=== PATIENT | female | born 1965 | race Caucasian/White ===

== ENCOUNTER 2023-11-12 11:35 | Emergency (ER) | payer BC, SELFPAY ==
[2023-11-12 11:42] VITALS: BP 132/79; PULSE 91; TEMP 36.6; O2SAT 98; BMI 27.0
[2023-11-12 12:05] VITALS: BP 133/79; PULSE 85; RESP 21; O2SAT 94
--- NOTE | 2023-11-12 12:15 | ED_ITS ---
HPI - Dizziness 2 General: Chief Complaint: Headache Stated Complaint: dizzy Time Seen by Provider: 11/12/23 12:00 Source: patient and family Mode of arrival: ambulatory Limitations: no limitations History of Present Illness: HPI Narrative: Patient is a 58-year-old female presents to ED today along with her for evaluation of headache, neck pain, back pain, dizziness. Patient states she woke up with symptoms. She states she has a history of lupus. She states the headache, neck pain, back pain is common with her lupus and she states her pain today feels very similar to previous lupus related discomforts. She states the dizziness however is new. She describes it as her/herself spinning. It is significantly worse with movement of her head. She states she cannot ambulate due to dizziness. Denies chest pain, shortness of breath, palpitations. Denies slurred speech, facial droop, weakness to her arms or legs, numbness/tingling/loss of sensation, difficulty with word finding, or other neurologic complaints. MD elicited complaint: vertigo Onset (ago): hour(s) Timing: awoke with symptoms Severity: severe Description: room spinning and difficulty walking History of similar symptoms: No Exacerbating factors: movement/ambulation and change in body position Relieving factors: remaining still Associated symptoms: Reports no associated symptoms and headache(s); Denies chest pain, chills, malaise, nausea, palpitations, syncope or vomiting Associated neuro symptoms: Reports no associated symptoms; Deny confusion or numbness in extremities Stroke scale total: 0 Related Data Home Medications Medication Instructions Recorded Confirmed aspirin 81 mg tablet,delayed 81 mg PO QAM 11/12/23 11/12/23 release ciclopirox 8 % topical solution See Rx Instructions .Route .COMPLEX 11/12/23 11/12/23 ergocalciferol (vitamin D2) 1,250 50,000 mcg PO Q7D 11/12/23 11/12/23 mcg (50,000 unit) capsule estradiol 0.01% (0.1 mg/gram) 1 g vaginal BID 11/12/23 11/12/23 vaginal cream famotidine 20 mg tablet 20 mg PO BID 11/12/23 11/12/23 hydroxychloroquine 200 mg tablet 200 mg PO DAILY 11/12/23 11/12/23 metoprolol succinate 25 mg 25 mg PO QPM 11/12/23 11/12/23 tablet,extended release 24 hr ondansetron 4 mg disintegrating 4 mg PO Q8H PRN Nausea 11/12/23 11/12/23 tablet potassium chloride 20 mEq oral 20 meq PO DAILY PRN Hypokalemia 11/12/23 11/12/23 packet (Albino-Joseluis) rosuvastatin 20 mg tablet 20 mg PO QPM 11/12/23 11/12/23 tizanidine 4 mg tablet 40 mg PO Q6H PRN Muscle Spasm 11/12/23 11/12/23 Previous Rx's Medication Instructions Recorded meclizine 50 mg tablet 50 mg PO BID PRN dizziness #20 tabs 11/12/23 prednisone 10 mg tablet 10 mg PO DAILY 6 days #20 tabs 11/12/23 Allergies Allergy/AdvReac Type Severity Reaction Status Date / Time meperidine [From Demerol] Allergy Unknown Verified 11/12/23 11:50 morphine Allergy Unknown Verified 11/12/23 11:50 Sulfa (Sulfonamide Allergy Unknown Verified 11/12/23 11:50 Antibiotics) Review of Systems 2 Const: Denies: fever(s), chills, body aches, fatigue or malaise Eyes: Reports: change in vision; Denies: blurry vision, photophobia, floaters or seeing flashes Card: Denies: chest pain, palpitations, irregular heart rhythm, lightheadedness, syncope or dyspnea on exertion Resp: Denies: dyspnea, productive cough or pain on inspiration GI: Denies: abdominal pain, nausea, vomiting, heartburn or diarrhea : Denies: dysuria Musc: Reports: neck pain and back pain; Denies: extremity pain, extremity swelling, joint pain, joint swelling or joint redness Skin/Breast: Denies: rash Neuro: Reports: headache(s), difficulty walking (secondary to vertigo) and vertigo; Denies: numbness in extremities, weakness in extremities, sensory changes, lack of coordination, confusion, Slurred speech present or difficulty communicating thoughts Physical Exam 2 Const: COMMON NORMALS: no acute distress, average body habitus, patient oriented x3, no limitations, healthy appearing, alert and well nourished G ENERAL APPEARANCE: cooperative ORIENTATION/CONSCIOUSNESS: Yes awake, Yes oriented to person, Yes oriented to place and Yes oriented to time HENMT: COMMON NORMALS: normocephalic and atraumatic HEAD & SCALP: normal to inspection, normocephalic and atraumatic FACE & SINUS: normal facial exam and face symmetric Eye: COMMON NORMALS: Equal, round and reactive pupils present, EOMs intact bilaterally and conjunctivae normal GENERAL EYE: appearance normal, both eyes and all related structures and normal light reflex VISUAL ACUITY: Yes acuity normal PERIORBITAL: periorbital findings normal EYELID: eyelids normal CONJUNCTIVA: Yes conjunctivae normal SCLERA: sclerae normal CORNEA: Yes corneas normal PUPIL: Yes Equal, round and reactive pupils present DIRECT OPHTHALMOSCOPY: Yes normal light reflex OTHER: R horizontal nystagmus; normal head impulse testing; absent skew Neck/C-Spine: COMMON NORMALS: full ROM, no lymphadenopathy, supple and no meningeal signs GENERAL: Yes normal visual inspection CERVICAL SPINE: No Cervical spine tenderness and Yes Paracervical muscle tenderness Chest: COMMONS NORMALS: normal inspection of the chest Resp: COMMON NORMALS: normal respiratory effort and clear to auscultation bilaterally AUSCULTATION: clear to auscultation bilaterally Cardio: COMMON NORMALS: regular rate and regular rhythm RATE: regular rate RHYTHM: regular rhythm GI: COMMON NORMALS: Normal to inspection, nondistended, normoactive bowel sounds present, Soft to palpation, non-tender, No hepatosplenomegaly present and no masses PALPATION: Yes Soft to palpation and Yes No hepatosplenomegaly present : COMMON NORMALS: Yes no CVA tenderness BLADDER/KIDNEY EXAM: Yes no CVA tenderness Back/Pelvis: COMMON NORMALS: no CVA tenderness THORACIC SPINE/UPPER BACK: Y es paraspinal muscle tenderness LUMBAR SPINE/LOWER BACK: Yes paraspinal muscle tenderness Extremity: COMMON NORMALS: normal to inspection GENERAL: Yes normal exam except as noted Neuro: BEE COMA SCALE: document GCS findings Bee coma scale eye opening: Spontaneous [place] coma scale verbal response: Orientated [place] coma scale motor response: Obey commands Bee coma scale total score: 15 COMMON NORMALS: patient oriented x3, CN's II-XII intact bilaterally, moves all extremities, no focal motor deficits and no sensory deficits noted S ENSORIUM/ORIENTATION: Yes alert, Yes oriented to person, Yes oriented to place and Yes oriented to time MENINGEAL SIGNS: Yes no meningeal signs SPEECH: s peech normal GAIT: Yes Unable to assess gait MOTOR EXAM: 5/5 motor strength present throughout Skin: COMMON NORMALS: no rashes or lesions noted GENERAL SKIN EXAM: no rashes or lesions noted Course 2 Vital Signs: Vital signs: Vital Signs Temperature 97.8 F 11/12/23 11:42 Pulse Rate 83 11/12/23 13:55 Respiratory Rate 16 11/12/23 13:55 Blood Pressure 131/72 11/12/23 13:55 Pulse Oximetry 94 11/12/23 13:55 Oxygen Delivery Me thod Room Air 11/12/23 13:55 MDM - Dizziness Medical Decision Making After speaking to patient further she has had URI-like symptoms prior to leading up to the vertigo. This most likely is a vestibular neuronitis. Other DDx includes vestibular migraine specially with her current headache although she has had these previously with her lupus without the vertigo. BPPV. Central etiology ruled out with her normal MRI. Blood work overall is unremarkable. She was able to ambulate here with the help of a walker. This time patient will be discharged home with meclizine and steroids. Recommend follow-up with her primary care provider by the end of the week for reevaluation. Return to ED precautions given. Medical Records I reviewed the patient's medical records. Lab Data I reviewed the patient's lab results. 11/12/23 12:10 11/12/23 12:10 Radiology Impressions Head MRI 11/12/23 12:17 IMPRESSION: 1. No acute infarct or diffusion abnormality. 2. No volume loss or atrophy. 3. Sphenoid sinus disease. Laboratory Results WBC 5.16 10^3/uL (3.29-11.43) 11/12/23 12:10 RBC 4.27 10^6/uL (3.85-5.65) 11/12/23 12:10 Hgb 12.40 g/dL (11.27-16.99) 11/12/23 12:10 Hct 36.3 % (36-47) 11/12/23 12:10 MCV 85.0 fl (85-98) 11/12/23 12:10 MCH 29.0 pg (27-33) 11/12/23 12:10 MCHC 34.2 g/dL (30-55) 11/12/23 12:10 RDW 12.3 % (12.1-15.1) 11/12/23 12:10 Plt Count 151 10^3/cmm (157-399) L 11/12/23 12:10 MPV 11.0 fL (7.4-10.4) H 11/12/23 12:10 Neut % (Auto) 58.1 % 11/12/23 12:10 Lymph % (Auto) 32.0 % 11/12/23 12:10 [place] % (Auto) 7.9 % 11/12/23 12:10 Eos % (Auto) 1.2 % 11/12/23 12:10 Baso % (Auto) 0.6 % 11/12/23 12:10 Neut # (Auto) 3.00 10^3/uL (1.8-7.7) 11/12/23 12:10 Lymph # (Auto) 1.7 10^3/uL (0.8-4.8) 11/12/23 12:10 [place] # (Auto) 0.4 10^3/uL (0.2-0.9) 11/12/23 12:10 Eos # (Auto) 0.1 10^3/uL (0.0-0.8) 11/12/23 12:10 Baso # (Auto) 0.0 10^3/uL (0.0-0.1) 11/12/23 12:10 Nucleated RBC % (auto) 0 % 11/12/23 12:10 Nucleated RBCs # 0.0 /100WBC 11/12/23 12:10 Sodium 135 mmol/L (136-145) L 11/12/23 12:10 Potassium 4.0 mmol/L (3.5-5.1) 11/12/23 12:10 Chloride 101 mmol/L (98-107) 11/12/23 12:10 Carbon Dioxide 25 mmol/L (22-29) 11/12/23 12:10 Anion Gap 13.0 (5-19) 11/12/23 12:10 BUN 5 mg/dL (6-20) L 11/12/23 12:10 Creatinine 0.5 mg/dL (0.5-0.9) 11/12/23 12:10 GFR Calculation 126.7 mL/min (90-130) 11/12/23 12:10 Glucose 97 mg/dL (65-115) 11/12/23 12:10 Calculated Osmolality 277 mOsm/kg (285-295) L 11/12/23 12:10 Calcium 8.5 mg/dL (8.5-10.5) 11/12/23 12:10 Total Bilirubin 0.3 mg/dL (0.15-1.2) 11/12/23 12:10 AST 20 U/L (0-32) 11/12/23 12:10 ALT 13 U/L (0-33) 11/12/23 12:10 Alkaline Phosphatase 112 U/L (35-105) H 11/12/23 12:10 Total Protein 6.9 g/dL (6.6-8.7) 11/12/23 12:10 Albumin 4.0 g/dL (3.5-5.2) 11/12/23 12:10 Globulin 2.9 g/dL (1.3-4.6) 11/12/23 12:10 Urine Color Yellow (Yellow) 11/12/23 13:18 Urine Appearance Error (CLEAR) A 11/12/23 13:18 Urine pH 7.5 (5-7) 11/12/23 13:18 Ur Specific [place] 1.009 (1.005-1.030) 11/12/23 13:18 Urine Protein Negative (Negative) 11/12/23 13:18 Urine Glucose (UA) Negative (Normal) 11/12/23 13:18 Urine Ketones Negative (Negative) 11/12/23 13:18 Urine Blood Negative (Negative) 11/12/23 13:18 Urine Nitrate Negative (Negative) 11/12/23 13:18 Urine Bilirubin Negative (Negative) 11/12/23 13:18 Urine Urobilinogen 0.2 mg/dL (Negative) 11/12/23 13:18 Ur Leukocyte Esterase Negative (Negative) 11/12/23 13:18 Urine RBC 0-2 /hpf (0-2) 11/12/23 13:18 Urine WBC 0-5 /hpf (0-5) 11/12/23 13:18 Ur Squamous Epith Cells 0-5 /hpf (0-5) 11/12/23 13:18 Amorphous Sediment Not Reportable 11/12/23 13:18 Urine Bacteria None seen /hpf (NONE) 11/12/23 13:18 Hyaline Casts 0.40 /lpf 11/12/23 13:18 All radiology interpretation(s) finalized by discharge Discharge Plan Discharge Patient Disposition: Home Clinical Impression: Peripheral vertigo Qualifiers: Laterality: unspecified laterality Qualified Code(s): H81.399 - Other peripheral vertigo, unspecified ear Condition: Stable Prescriptions: New meclizine 50 mg tablet 50 mg PO BID PRN (Reason: dizziness) Qty: 20 0RF prednisone 10 mg tablet 10 mg PO DAILY 6 Days Qty: 20 0RF Rx Instructions: Take 5 tabs on day 1-2, 4 tabs on day 3, 3 tabs on day 4, 2 tabs on day 5, and 1 tab on day 6 No Action tizanidine 4 mg tablet 40 mg PO Q6H PRN (Reason: Muscle Spasm) Aspir-81 81 mg Tablet,Delayed Release (Dr/Ec) 81 mg PO QAM ciclopirox 8 % solution See Rx Instructions .ROUTE .COMPLEX Rx Instructions: Apply to nails every day for 1 week, remove and start again. Klor-Con 20 mEq packet 20 meq PO DAILY PRN (Reason: Hypokalemia) famotidine 20 mg tablet 20 mg PO BID metoprolol succinate 25 mg tablet extended release 24 hr 25 mg PO QPM ergocalciferol (vitamin D2) 1,250 mcg (50,000 unit) capsule 50,000 mcg PO Q7D Rx Instructions: Saturday hydroxychloroquine 200 mg tablet 200 mg PO DAILY estradiol 0.01 % (0.1 mg/gram) cream 1 g VAGINAL BID ondansetron 4 mg tablet,disintegrating 4 mg PO Q8H PRN (Reason: Nausea) rosuvastatin 20 mg tablet 20 mg PO QPM Discharge Orders: Discharge ED (Routine); Ordered 11/12/23 Ordered By: Jossy Parr Patient Instructions: Vertigo (DC), Dizziness (ED) Activity Restrictions/Additional Instructions: As we discussed, I would like you to follow-up with your primary care provider by the end of the week for reevaluation. You need to return to the emergency department for worsening dizziness, repetitive episodes of vomiting, or worsening or severe head pain, slurred speech, trouble ambulating or tipping over, facial drooping, numbness/tingling/loss of sensation or weakness to your arms or legs, or any other concerns you may have. Coding Level of Care Code ED Applications Programmer Analyst for Jackie Portillo
--- NOTE | 2023-11-12 12:17 | MR_ITS ---
WS: [id number] MRI BRAIN WITHOUT CONTRAST HISTORY: dizziness COMPARISON: MRI from 06/15/2011 TECHNIQUE: Diffusion imaging, multiplanar T1, T2 and FLAIR imaging obtained. No evidence for acute infarct or hemorrhage. Almanzar-white matter differentiation is normal. No remote or acute infarcts are volume loss. Ventricles and extra-axial spaces are normal. No inferior displacement of cerebellar tonsils. The sella turcica and pituitary gland are unremarkabl e. Dural venous sinuses and [place] of [place] demonstrate no abnormality on this unenhanced studies. Paranasal sinuses: Near complete opacification RIGHT sphenoid sinus. No air-fluid levels within the m axillary sinuses. Mastoid air cells: Normal. Calvarium and scalp: Intact. MR/MR head wo con* [id number] IMPRESSION: 1. No acute infarct or diffusion abnormality. 2. No volume loss or atrophy. 3. Sphenoid sinus disease.
[2023-11-12 12:26] LABS: Basophils % 0.6 %; Eosinophils # 0.1 10^3/uL (0.0-0.8); Eosinophils % 1.2 %; Hematocrit 36.3 % (36-47); Lymphocytes # 1.7 10^3/uL (0.8-4.8); Mean Corpuscular HGB Conc 34.2 g/dL (30-55); Monocytes # 0.4 10^3/uL (0.2-0.9); Monocytes % 7.9 %; Neutrophils % 58.1 %; Nucleated Red Blood Cells % 0 %; Platelet Count 151 10^3/cmm (157-399); Red Blood Count 4.27 10^6/uL (3.85-5.65); Red Cell Distribution Width 12.3 % (12.1-15.1); White Blood Count 5.16 10^3/uL (3.29-11.43)
[2023-11-12] MEDS: meclizine 25 mg tablet 50 MG PO (12:34)
[2023-11-12 12:36] LABS: Alanine Aminotransferase 13 U/L (0-33); Alkaline Phosphatase 112 U/L (35-105); Aspartate Amino Transferase 20 U/L (0-32); Blood Urea Nitrogen 5 mg/dL (6-20); Calcium 8.5 mg/dL (8.5-10.5); Carbon Dioxide 25 mmol/L (22-29); Chloride 101 mmol/L (98-107); Creatinine Clr Calc Pharmacy 105.7612; Globulin 2.9 g/dL (1.3-4.6); Glomerular Filtration Rate 126.7 mL/min (90-130); Glucose 97 mg/dL (65-115); Osmolality Calculated 277 mOsm/kg (285-295); Sodium 135 mmol/L (136-145); Total Bilirubin 0.3 mg/dL (0.15-1.2); Total Protein 6.9 g/dL (6.6-8.7)
[2023-11-12] MEDS: LORazepam 2 mg/mL INJ 1 mL IVP (12:45)
--- NOTE | 2023-11-12 12:46 | PC.NURSE ---
PT taken to MRI at 1245
[2023-11-12 13:30] VITALS: BP 132/73; PULSE 88; RESP 18; O2SAT 97
[2023-11-12 13:35] LABS: Bacteria Urine None Seen /hpf; RBC Urine 0-2 /hpf (0-2); Squamous Epithelial Cell Urine 0-5 /hpf (0-5); WBC Urine 0-5 /hpf (0-5)
[2023-11-12 13:39] LABS: Add Urine Microscopic? YES; Bilirubin Urine Negative (Negative); Blood Urine Negative (Negative); Glucose Urine UA Negative (Normal); Ketones Urine Negative (Negative); Leukocyte Esterase Urine Negative (Negative); Nitrate Urine Negative (Negative); Protein Urine Negative (Negative); Specific Gravity, Urine 1.009 (1.005-1.030); Urine Appearance Error (CLEAR); Urine Color Yellow (Yellow); Urobilinogen Urine 0.2 mg/dL (Negative); pH Urine 7.5 (5-7)
--- NOTE | 2023-11-12 13:39 | PC.PHAR ---
pt has 3 medications with unknown directions. [facility] in [facility] is closed for lunch and will reopen at 2pm. Will follow up as soon as they are open.
[2023-11-12] MEDS: sodium chloride 0.9% 1,000 ML 999 ML IV (13:41)
[2023-11-12 13:55] VITALS: BP 131/72; PULSE 83; RESP 16; O2SAT 94
--- NOTE | 2023-11-12 14:12 | PC.NURSE ---
ambulated pt from bed to hallway and back to bed. pt reports feeling very Off balance and pt states when turning head side to side, the room starts spinning. pt sways with walking, and steps are unequal.
[2023-11-12 14:47] VITALS: BP 147/72; PULSE 82; O2SAT 92
== END 2023-11-12 14:48 | disposition home or self-care (01) ==
PROVIDERS: Emergency Provider Physician Assistant
DX: H81.399 Other peripheral vertigo, unspecified ear (principal); Z79.82 Long term (current) use of aspirin
CPT/HCPCS: 70551; 80053; 81001; 85025; 96374; 99285; J2060; J7030; J8597

== ENCOUNTER 2024-09-19 13:38 | Emergency (ER) | payer BC, SELFPAY ==
[2024-09-19] VITALS (8 sets, daily range): BP systolic 119–170; BP diastolic 69–111; PULSE 81–133; RESP 15–18; TEMP 36.4; O2SAT 94–100
--- NOTE | 2024-09-19 13:41 | ECG_ITS ---
[facility]: 2024-09[facility]19 Pat Name: Dariela Glez Department: Room: Gender: Female Coat Room Attendant: : 1965 Requested By: Rahel Johansen Order Number: [id number] Ihsan MD: SANTIAGO DOYLE Measurements Intervals [place] Rate: 121 P: 50 FL: 172 QRS: -5 QRSD: 78 T: 58 QT: 299 QTc: 425 Interpretive Statements SINUS TACHYCARDIA ABNORMAL RHYTHM ECG Compared to ECG 06/11/2015 16:34:52 Sinus rhythm no longer present Electronically Signed On 09-21-2024 13:57:55 CDT by SANTIAGO DOYLE [email or web address]
--- NOTE | 2024-09-19 13:44 | XRR_ITS ---
PROCEDURE INFORMATION: Exam: XR Chest Exam date and time: 09/19/2024 1:47 PM Age: 59 years old Clinical indication: Cough; Additional info: Dyspnea; Cough TECHNIQUE: Imaging protocol: Radiologic exam of the chest. Views: 1 view. COMPARISON: No relevant prior studies available. FINDINGS: Lungs: Unremarkable. No consolidation or mass. Pleural spaces: Unremarkable. No pleural effusion. No pneumothorax. Heart/Mediastinum: Unremarkable. No cardiomegaly. Bones/joints: Unremarkable. XR/XR chest 1V portable [id number] IMPRESSION: No acute findings.
--- OUTSIDE RECORDS SUMMARY | 2024-09-19 13:45 | XMS_ITS | Clinical Summary ---
Author Organization [facility] Address [address] [place] [address] Care Team Providers Care Table Assembler Metal Name Role Phone Sara Winkler DO Primary Care Provider Kyle Pemberton MD Unavailable Allergies Active Allergy Reactions Criticality Noted Date Comments Meperidine Other (See comments),Palpitations,U nknown Medium 12/03/2008 Very sick cardiac cardiac Very sick cardiac cardiac Morphine Unknown 02/05/2019 Medications predniSONE (DELTASONE) 20 mg tablet 0 12/23/2018 Active omeprazole (PriLOSEC) 20 mg capsule TK 1 C PO D B MEGAN 3 01/05/2019 Active LORazepam (ATIVAN) 2 mg tablet TK 1 T PO ONCE 45 MIN PRIOR TO MRI 0 01/06/2019 Active fluticasone propionate (FLONASE) 50 mcg/actuation nasal spray SHAKE LQ AND U 1 SPR IEN D 11 12/11/2018 Active Active Problems Problem Noted Date Diagnosed Date Sudden left hearing loss 02/06/2019 Subjective tinnitus of left ear 02/06/2019 Asymmetric SNHL (sensorineural hearing loss) Fatigue 02/02/2016 Pain of hand 08/04/2015 Hypokalemia 08/04/2015 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 Surgical History Surgery Date Site/Laterality Comments HYSTERECTOMY Medical History Medical History Date Comments Anxiety Autoimmune disease Social History Tobacco Use Types Packs/Day Years Used Date Smoking Tobacco: Every Day Personal Safety Answer Date Recorded Getting School Help Needed Not on file 05/02 Comments Unknown Sex and Gender Information Value Date Recorded Sex Assigned at Not on file 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 Gender Identity Not on file Sexual Orientation Not on file Obstetrics History Last Filed Vital Signs Vital Sign Reading Time Taken Comments Blood Pressure 133/84 11/22/2016 8:53 AM CDT Pulse 85 11/22/2016 8:53 AM CDT Temperature - - Respiratory Rate - - Oxygen Saturation - - Inhaled Oxygen Concentration - - Weight 71.4 kg (157 lb 6.2 oz) 11/22/2016 8:53 A M CDT Height 152.4 cm (5') 11/22/2016 8:53 AM CDT Body Mass Index 30.74 11/22/2016 8:53 AM CDT Plan of Treatment Not on file Insurance [employer] [place] Care Teams Table Assembler Metal Relationship Specialty Start Date End Date Sara Winkler DO PCP - General Family Medicine 01/12/19 Kyle Pemberton MD [address] [facility] [place] [id number] Referring Physician Otolaryngology 02/04/19
--- OUTSIDE RECORDS SUMMARY | 2024-09-19 13:45 | XMS_ITS | Clinical Summary ---
Author Organization [employer] ([place] [address] Address [address] [address] Care Team Providers Care Exploration Driller Name Role Phone Unavailable Primary Care Provider Unavailabl e Allergies Active Allergy Reactions Criticality Noted Date Comments Cephalexin Itching Medium 07/09/2023 Ciprofloxacin Anaphylaxis High 07/10/2023 Meperidine Hypotension,Other (See Comments),Palpitation s,Unknown Medium 12/03/2008 Very sick cardiac cardiac Very sick cardiac cardiac Very sick cardiac cardiac cardiac Very sick cardiac Morphine Hypotension,Unknown Medium 02/05/2019 Blood pressure drops drastically. Sulfamethoxazole-Trimet hoprim Swelling Low 12/25/2023 Blisters on hands, redness and swelling of hands and feet Medications multivitamin (DAILY-NATHALY) tabletIndications :Hypokalemic periodic paralysis Take 1 Tablet by mouth daily. Active aspirin (ECOTRIN EC) 81 mg Tablet, Delayed Release (E.C.) Take 81 mg by mouth daily. Active rosuvastatin (CRESTOR) 20 mg tablet Take 20 mg by mouth daily. Active nebivoloL (BYSTOLIC) 5 mg Tablet Take 5 mg by mouth daily. 4 Active metoprolol succinate (TOPROL XL) 25 mg Extended Release 24 hour tablet Take 25 mg by mouth daily at bedtime. 4 10/08/19 25 Active ondansetron (ZOFRAN ODT) 4 mg Tablet, Rapid Dissolve 4 Active nitrofurantoin (MACROBID) 100 mg capsule 4 Active potassium CHLORIDE (KLOR-CON) 20 mEq PacketIndications :Hypokalemia Take 1 Packet (20 mEq) by mouth daily. 30 Packet 3 5 Active hydroxychloroquin e (PLAQUENIL) 200 mg tabletIndications :Other forms of systemic lupus erythematosus, unspecified organ involvement status (CMS/HCC) Take 1 Tablet (200 mg) by mouth 2 times daily. 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 Take with food. 52 Tablet 5 Active folic acid (FOLVITE) 1 mg tablet Take 1 Tablet (1 mg) by mouth daily. 90 Tablet 3 5 Active ergocalciferol (VITAMIN D2) 50,000 unit capsuleIndication s:Vitamin D deficiency Take 1 Capsule (50,000 Units) by mouth every 7 days. 5 Capsule 5 5 Active famotidine (PEPCID) 20 mg tabletIndications :Gastroesophageal reflux disease without esophagitis Take 1 Tablet (20 mg) by mouth 2 times daily. 60 Tablet 5 5 Active famotidine (PEPCID) 20 mg tabletIndications :Gastroesophageal reflux disease without esophagitis Take 1 Tablet (20 mg) by mouth 2 times daily. 60 Tablet 5 5 09/11/19 25 Discontinu ed(Reorder ) Active Problems Problem Noted Date Diagnosed Date Gastroesophageal reflux disease without esophagi tis 06/18/2017 Other osteoporosis without current pathological fracture 06/18/2017 Familial periodic paralysis 06/18/2017 Other forms of systemic lupus erythematosus 02/2017 S/P total hysterectomy 06/18/2017 Hypercholesteremia 06/18/2017 Cigarette dependence 06/18/2017 Hypokalemia 08/04/2015 Encounters Date Type Department Care Team Description 09/10/2024 Telephone [facility] [address] [phone] Preston Olea MD Medication Refill 09/08/2024 External Device Data STL ABSTRACTION Provider, Abstract 09/07/2024 Orders Only [facility] [address] [phone] Preston Olea MD Medication monitoring encounter 09/02/2024 External Device Data STL ABSTRACTION Provider, Abstract 09/02/2024 External Device Data STL ABSTRACTION Provider, Abstract 09/01/2024 External Device Data STL ABSTRACTION Provider, Abstract 08/18/2024 External Device Data STL ABSTRACTION Provider, Abstract 08/11/2024 External Device Data STL ABSTRACTION Provider, Abstract 07/13/2024 Orders Only [facility] [address] [place] [address] Preston Olea MD Medication monitoring encounter 07/09/2024 External Device Data STL ABSTRACTION Provider, Abstract 07/09/2024 External Device Data STL ABSTRACTION Provider, Abstract 07/08/2024 External Device Data STL ABSTRACTION Provider, Abstract 07/08/2024 External Device Data STL ABSTRACTION Provider, Abstract 07/07/2024 External Device Data STL ABSTRACTION Provider, Abstract 06/23/2024 External Device Data STL ABSTRACTION Provider, Abstract from Last 3 Months Family History Medical History Relation Name Comments Psoriasis Daughter Psoriasis Father Heart Disease Mother SLE Paternal Cousin Relation Name Status Comments Daughter Father Mother Paternal Cousin Alive Social History Tobacco Use Types Packs/Day Years Used Date Smoking Tobacco: Every Day Cigarettes 0.5 30 Tobacco Cessation:Ready to Q uit: Not Asked; Counseling Given: Not Answered Alcohol Use Standard Drinks/Week Comments No 0 (1 standard drink = 0.6 oz pur e alcohol) Comments No Sex and Gender Information Value Date Recorded Sex Assigned at Not on file Legal Sex Female 1:28 PM CDT Gender Identity Not on file Sexual Orientation Not on file Last Filed Vital Signs Vital Sign Reading Time Taken Comments Blood Pressure 123/82 03/13/2024 9:45 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 Pulse 64 03/13/2024 9:45 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 Temperature 36.8 C (98.2 F) 07/21/2023 1:00 AM CDT Respiratory Rate 12 11/01/2023 8:46 AM CDT Oxygen Saturation 98% 03/13/2024 9:45 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 Inhaled Oxygen Concentration - - Weight 66.2 kg (146 lb) 03/13/2024 9:45 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 Height 154.9 cm (5' 1 ) 03/13/2024 9:45 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 Body Mass Index 27.59 03/13/2024 9:45 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 Plan of Treatment Upcoming Encounters Date Type Department Care Team (Late st Contact Info) Description 10/09/2024 2:20 PM CDT Appointment [facility] [address] [phone] Preston Olea MD [address] [place], [place] [phone] Health Maintenance Due Date Last Done Comments Pre-Diabetes and Diabetes Screening 1965 DTAP/TDAP/TD VACCINES (1 - Tdap) 02/19/1984 HEPATITIS B VACCINES (1 of 3 - 19+ 3-dose series) 02/19/1984 ZOSTER VACCINE (1 of 2) 02/19/1984 FIT-DNA Q 3 years 2010 FIT/FOBT Q 1 year 2010 Flex Sig/CT Colonography Q 5 years 2010 Preventative Visit- Commercial 02/19/2024 BREAST CANCER SCREENING 05/21/2024 05/22/19 24, 05/22/2023, 10/03/2021, Additional history exists INFLUENZA VACCINE (#1) 2024 COLORECTAL SCREENING 01/30/2029 01/30/2019 Colorectal Cancer Screening 01/30/2029 Insurance [facility] BLUE ACCESS/TRUE BLUE PPO
--- OUTSIDE RECORDS SUMMARY | 2024-09-19 13:45 | XMS_ITS | Referral Summary ---
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 Social History Tobacco Use Types Packs/Day Years Used Date Smoking Tobacco: Every Day Personal Safety Answer Date Recorded Getting School Help Needed Not on file 05/02 Comments Unknown Sex and Gender Information Value Date Recorded Sex Assigned at Not on file Legal Sex Female 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
--- NOTE | 2024-09-19 13:51 | W.ED.ARRPALP ---
HPI - Arrhythmia/Palpitations General: Chief Complaint: Arrhythmia/Palpitations Stated Complaint: Heart Rate and BP High Time Seen by Provider: 09/19/24 13:43 History of Present Illness: 59-year-old female presents to the emergency room with complaint of rapid heart rate elevated blood pressure. She is on metoprolol which she did take today. Is not complaining of any specific chest pain. Additionally she is on potassium. She reports she has a history of lupus for which she takes hydroxychloroquine. Related Data Home Medications ?Medication ?Instructions ?Recorded ?Confirmed aspirin 81 mg tablet,delayed 81 mg PO BID 11/12/23 09/19/24 release ergocalciferol (vitamin D2) 1,250 50,000 mcg PO Q7D 11/12/23 09/19/24 mcg (50,000 unit) capsule famotidine 20 mg tablet 20 mg PO BID 11/12/23 09/19/24 hydroxychloroquine 200 mg tablet 200 mg PO BID 11/12/23 09/19/24 potassium chloride 20 mEq oral 20 meq PO DAILY PRN Hypokalemia 11/12/23 09/19/24 packet (Klor-Con) rosuvastatin 20 mg tablet 20 mg PO QPM 11/12/23 09/19/24 Previous Rx's ?Medication ?Instructions ?Recorded metoclopramide HCl 10 mg tablet 10 mg PO Q6H PRN nausea and 11/12/23 vomiting #14 tabs metoprolol succinate 25 mg 37.5 mg (1.5 x 25 mg) PO QPM #45 09/19/24 tablet,extended release 24 hr tabs Allergies Allergy/AdvReac Type Severity Reaction Status Date / Time meperidine (From Demerol) Allergy Unknown Verified 09/19/24 13:46 morphine Allergy Unknown Verified 09/19/24 13:46 prednisone Allergy Unknown Verified 09/19/24 13:46 Sulfa (Sulfonamide Allergy Unknown Verified 09/19/24 13:46 Antibiotics) Review of Systems Const: Denies: fever(s) or chills Card: Reports: palpitations; Denies: chest pain Resp: Denies: dyspnea GI: Denies: abdominal pain : Denies: dysuria, urinary frequency or urinary urgency Musc: Denies: neck pain or back pain Skin/Breast: Denies: rash Neuro: Reports: headache(s) Physical Exam Const: ORIENTATION/CONSCIOUSNESS: Yes awake, Yes oriented to person, Yes oriented to place and Yes oriented to time HENMT: COMMON NORMALS: normocephalic, atraumatic and hearing grossly normal bilaterally HEAD & SCALP: normocephalic and atraumatic Resp: COMMON NORMALS: normal respiratory effort, No retractions, No use of accessory muscles and clear to auscultation bilaterally AUSCULTATION: clear to auscultation bilaterally Cardio: COMMON NORMALS: regular rate, regular rhythm and No murmurs present (Cardio) RATE: regular rate RHYTHM: regular rhythm GI: COMMON NORMALS: Soft to palpation and No hepatosplenomegaly present AUSCULTATION: Yes normoactive bowel sounds PALPATION: Yes Soft to palpation, No Tenderness to palpation present (GI), No Guarding due to palpation present (GI) and Yes No hepatosplenomegaly present Extremity: COMMON NORMALS: normal to inspection, capillary refill normal, no clubbing, cyanosis or edema, no calf tenderness and no pedal edema Neuro: SENSORIUM/ORIENTATION: Yes oriented to person, Yes oriented to place and Yes oriented to time Skin: COMMON NORMALS: no rashes or lesions noted GENERAL SKIN EXAM: no rashes or lesions noted Course Vital Signs: Vital signs: Vital Signs Temperature 97.5 F L 09/19/24 13:43 Pulse Rate 94 09/19/24 16:30 Respiratory Rate 16 09/19/24 14:45 Blood Pressure 119/69 09/19/24 16:30 Pulse Oximetry 95 09/19/24 16:30 Oxygen Delivery Me thod Room Air 09/19/24 16:30 MDM - Arrhythmia/Palpitations Medical Decision Making Patient given nadolol pressure and heart rate are improved. She has negative cardiac enzymes D-dimer was elevated CTA of the chest is negative. Reviewed findings with the patient will increase her metoprolol and have her follow-up with her primary care doctor return for further problems no evidence of acute coronary syndrome or PE or pneumonia. Medical Records I reviewed the patient's medical records. Lab Data I reviewed the patient's lab results. 09/19/24 14:00 09/19/24 14:00 Radiology Impressions Chest X-Ray 09/19/24 13:44 IMPRESSION: No acute findings. Chest CTA 09/19/24 14:52 IMPRESSION: No acute findings. Laboratory Results WBC 5.99 10^3/uL (3.29-11.43) 09/19/24 14:00 RBC 4.88 10^6/uL (3.85-5.65) 09/19/24 14:00 Hgb 14.00 g/dL (11.27-16.99) 09/19/24 14:00 Hct 40.1 % (36-47) 09/19/24 14:00 MCV 82.2 fl (85-98) L 09/19/24 14:00 MCH 28.7 pg (27-33) 09/19/24 14:00 MCHC 34.9 g/dL (30-55) 09/19/24 14:00 RDW 12.3 % (12.1-15.1) 09/19/24 14:00 Plt Count 167 10^3/cmm (157-399) 09/19/24 14:00 MPV 10.8 fL (7.4-10.4) H 09/19/24 14:00 Neut % (Auto) 75.6 % 09/19/24 14:00 Lymph % (Auto) 17.7 % 09/19/24 14:00 [place] % (Auto) 5.5 % 09/19/24 14:00 Eos % (Auto) 0.5 % 09/19/24 14:00 Baso % (Auto) 0.5 % 09/19/24 14:00 Neut # (Auto) 4.53 10^3/uL (1.8-7.7) 09/19/24 14:00 Lymph # (Auto) 1.1 10^3/uL (0.8-4.8) 09/19/24 14:00 [place] # (Auto) 0.3 10^3/uL (0.2-0.9) 09/19/24 14:00 Eos # (Auto) 0.0 10^3/uL (0.0-0.8) 09/19/24 14:00 Baso # (Auto) 0.0 10^3/uL (0.0-0.1) 09/19/24 14:00 Nucleated RBC % (auto) 0 % 09/19/24 14:00 Nucleated RBCs # 0.0 /100WBC 09/19/24 14:00 D-Dimer 3.31 ug/mLFEU (0-0.59) H 09/19/24 14:00 Sodium 135 mmol/L (136-145) L 09/19/24 14:00 Potassium 4.3 mmol/L (3.5-5.1) 09/19/24 14:00 Chloride 99 mmol/L (98-107) 09/19/24 14:00 Carbon Dioxide 23 mmol/L (22-29) 09/19/24 14:00 Anion Gap 17.3 (5-19) 09/19/24 14:00 BUN 3 mg/dL (6-20) L 09/19/24 14:00 Creatinine 0.5 mg/dL (0.5-0.9) 09/19/24 14:00 GFR Calculation 126.3 mL/min (90-130) 09/19/24 14:00 Glucose 111 mg/dL (65-115) 09/19/24 14:00 Calculated Osmolality 277 mOsm/kg (285-295) L 09/19/24 14:00 Calcium 9.5 mg/dL (8.5-10.5) 09/19/24 14:00 Total Bilirubin 0.3 mg/dL (0.15-1.2) 09/19/24 14:00 AST 19 U/L (0-32) 09/19/24 14:00 ALT 14 U/L (0-33) 09/19/24 14:00 Alkaline Phosphatase 127 U/L (35-105) H 09/19/24 14:00 Troponin T Baseline 9 ng/L (0-10) 09/19/24 14:00 Troponin T 120 Minute 8.20 ng/L (0-10) 09/19/24 16:11 Delta Troponin T -0.80 ABS# (0-10) L 09/19/24 16:11 Total Protein 7.4 g/dL (6.6-8.7) 09/19/24 14:00 Albumin 4.4 g/dL (3.5-5.2) 09/19/24 14:00 Globulin 3.0 g/dL (1.3-4.6) 09/19/24 14:00 Urine Color Yellow (Yellow) 09/19/24 14:00 Urine Appearance Clear (CLEAR) 09/19/24 14:00 Urine pH 6.0 (5-7) 09/19/24 14:00 Ur Specific [place] 1.007 (1.005-1.030) 09/19/24 14:00 Urine Protein Negative (Negative) 09/19/24 14:00 Urine Glucose (UA) Negative (Normal) 09/19/24 14:00 Urine Ketones Negative (Negative) 09/19/24 14:00 Urine Blood Negative (Negative) 09/19/24 14:00 Urine Nitrate Negative (Negative) 09/19/24 14:00 Urine Bilirubin Negative (Negative) 09/19/24 14:00 Urine Urobilinogen 0.2 mg/dL (Negative) 09/19/24 14:00 Ur Leukocyte Esterase Negative (Negative) 09/19/24 14:00 Urine RBC 0-2 /hpf (0-2) 09/19/24 14:00 Urine WBC 0-5 /hpf (0-5) 09/19/24 14:00 Ur Squamous Epith Cells 0-5 /hpf (0-5) 09/19/24 14:00 Amorphous Sediment Not Reportable 09/19/24 14:00 Urine Bacteria None seen /hpf (NONE) 09/19/24 14:00 Hyaline Casts 0-4 /lpf H 09/19/24 14:00 All radiology interpretation(s) finalized by discharge EKG Data EKG 1: Interpretation: EKG 09/19/2024 1341 sinus tachycardia rate of 121 QTc C is 425 VA interval [address] changes are noted. Beyond rate changes there is no acute changes compared to 06/11/2015 EKG Other EKG comments: Chest X-Ray 09/19/24 13:44 IMPRESSION: No acute findings. Chest CTA 09/19/24 14:52 IMPRESSION: No acute findings. EKG 2: Interpretation: EKG 6 09/19/2024 1600 sinus rhythm rate of [address] changes no T wave inversions. Compared EKG done earlier same day rate has changed otherwise unchanged Other EKG comments: Chest X-Ray 09/19/24 13:44 IMPRESSION: No acute findings. Chest CTA 09/19/24 14:52 IMPRESSION: No acute findings. Discharge Plan Discharge Patient Disposition: Home Clinical Impression: Palpitations Hypertension Qualifiers: Hypertension type: primary hypertension Qualified Code(s): I10 - Essential (primary) hypertension Condition: Stable Prescriptions: Changed metoprolol succinate 25 mg tablet extended release 24 hr 37.5 mg PO QPM Qty: 45 0RF No Action aspirin [Aspir-81] 81 mg Tablet,Delayed Release (Dr/Ec) 81 mg PO BID potassium chloride [Klor-Con] 20 mEq packet 20 meq PO DAILY PRN (Reason: Hypokalemia) famotidine 20 mg tablet 20 mg PO BID ergocalciferol (vitamin D2) 1,250 mcg (50,000 unit) capsule 50,000 mcg PO Q7D Rx Instructions: Saturday hydroxychloroquine 200 mg tablet 200 mg PO BID rosuvastatin 20 mg tablet 20 mg PO QPM metoclopramide HCl 10 mg tablet 10 mg PO Q6H PRN (Reason: nausea and vomiting) Qty: 14 0RF Discharge Orders: Discharge ED (Routine); Ordered 09/19/24 Ordered By: Elian Longo Discharge Diet: Usual diet Discharge Activity: Increase activity as tolerated Patient Instructions: Opioid Safety, Pain Management, Patient Portal & Jessie Instructions Activity Restrictions/Additional Instructions: Thank you for choosing [facility] for your healthcare needs today. It is very important that you follow up as instructed or that you return to the Emergency Department should you have concerns or if your condition changes or worsens in any way. You were seen in the emergency room with complaints of elevated blood pressure and palpitations. Your blood pressure was elevated emergency room you were given medications in the emergency room which improved your blood pressure. Recommend increasing her metoprolol to 1-1/2 tablets daily. Follow-up with your primary care provider within the next week to reevaluate. CTA of your chest did not show any pulmonary embolism cardiac enzymes and EKG did not show any signs of acute coronary issues. Print Language: Wolof Coding Level of Care Code ED Mechanical Drawing Teacher for Jackie Portillo
[2024-09-19 14:18] LABS: Hematocrit 40.1 % (36-47); Hemoglobin 14.00 g/dL (11.27-16.99); Mean Corpuscular HGB Conc 34.9 g/dL (30-55); Mean Corpuscular Hemoglobin 28.7 pg (27-33); Mean Corpuscular Volume 82.2 fl (85-98); Nucleated Red Blood Cells % 0 %; Platelet Count 167 10^3/cmm (157-399); Red Blood Count 4.88 10^6/uL (3.85-5.65); White Blood Count 5.99 10^3/uL (3.29-11.43)
[2024-09-19] MEDS: labetalol 5 mg/mL SDV 20mL 10 MG IVP (14:18)
[2024-09-19 14:22] LABS: Glucose Urine UA Negative (Normal); Nitrate Urine Negative (Negative); Specific Gravity, Urine 1.007 (1.005-1.030)
[2024-09-19 14:27] LABS: Add Urine Microscopic? YES
[2024-09-19 14:40] LABS: Troponin(5th) Baseline 9 ng/L (0-10)
[2024-09-19 14:44] LABS: Alanine Aminotransferase 14 U/L (0-33); Albumin Level 4.4 g/dL (3.5-5.2); Alkaline Phosphatase 127 U/L (35-105); Anion Gap 17.3 (5-19); Aspartate Amino Transferase 19 U/L (0-32); Blood Urea Nitrogen 3 mg/dL (6-20); Calcium 9.5 mg/dL (8.5-10.5); Carbon Dioxide 23 mmol/L (22-29); Chloride 99 mmol/L (98-107); Creatinine Clr Calc Pharmacy 107.5942; Globulin 3.0 g/dL (1.3-4.6); Glucose 111 mg/dL (65-115); Osmolality Calculated 277 mOsm/kg (285-295); Potassium 4.3 mmol/L (3.5-5.1); Sodium 135 mmol/L (136-145); Total Protein 7.4 g/dL (6.6-8.7)
--- NOTE | 2024-09-19 14:52 | CTR_ITS ---
PROCEDURE INFORMATION: Exam: CTA Chest With Contrast Exam date and time: 09/19/2024 3:24 PM Age: 59 years old Clinical indication: Abnormal findings; Abnormal diagnostic tests; Elevated d-dimer; Additional info: Elevated d-dimer tachypnea dyspnea TECHNIQUE: Imaging protocol: Computed tomographic angiography of the chest with contrast. Exam focused on the arteries. 3D rendering (Not supervised by radiologist): MIP and/or 3D reconstructed images were created by the technologist. Radiation optimization: All CT scans at this facility use at least one of these dose optimization techniques: automated exposure control; mA and/or kV adjustment per patient size (includes targeted exams where dose is matched to clinical indication); or iterative reconstruction. Contrast material: OMNI 350; Contrast volume: 52 ml; Contrast route: INTRAVENOUS (IV); COMPARISON: CR (CHEST, ) 09/19/2024 1:47 PM RADIATION DOSE METRICS: Total DLP (mGy-cm): 391.16 FINDINGS: Pulmonary arteries: Normal. No pulmonary emboli. Aorta: Unremarkable. No aortic aneurysm. No aortic dissection. Lungs: Unremarkable. No consolidation. No masses. Pleural spaces: Unremarkable. No pneumothorax. No pleural effusion. Heart: Unremarkable. No cardiomegaly. No pericardial effusion. Lymph nodes: Unremarkable. No enlarged lymph nodes. Bones/joints: Thoracic scoliosis is noted. Soft tissues: Unremarkable. CT/CT angio chest PE protcl [id number] IMPRESSION: No acute findings.
[2024-09-19] MEDS: iohexol 350 mg/mL 500 mL Btl (per mL) IV (15:27)
--- NOTE | 2024-09-19 16:01 | ECG_ITS ---
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
[2024-09-19 16:39] LABS: Troponin 5 2HR 8.20 ng/L (0-10)
[2024-09-19 16:57] LABS: Troponin 5 2HR Delta -0.80 ABS# (0-10)
== END 2024-09-19 17:23 | disposition home or self-care (01) ==
PROVIDERS: Emergency Provider Family Medicine
DX: R00.2 Palpitations (principal); I10 Essential (primary) hypertension; Z79.82 Long term (current) use of aspirin
CPT/HCPCS: 36415; 71045; 71275; 80053; 81001; 84484; 85025; 85378; 93005; 96374; 96375; 99285; J1885; J3490